=== PATIENT | male | born 1995 | race Caucasian/White ===

== ENCOUNTER 2024-02-19 07:32 | Emergency (ER) | payer MEDICARE ==
[~2024-02-19] VITALS: Ht 170.2 cm; Wt 68.0 kg
[2024-02-19 07:35] VITALS: O2SAT 100
[2024-02-19 08:07] VITALS: BP 100/70; PULSE 57; RESP 16; TEMP 98
== END 2024-02-19 08:33 | disposition home or self-care (01) ==
LOC: ER 07:58
DX: R55 Syncope and collapse (principal)
CPT/HCPCS: 93005; 99283; Z7610 ×3

== ENCOUNTER 2024-09-13 15:03 | Emergency (ER) | payer MEDICAID ==
[~2024-09-13] VITALS: Ht 170.2 cm; Wt 73.0 kg
[2024-09-13 15:05] VITALS: O2SAT 98
[2024-09-13] MEDS: LIDOCAINE HCL 1% 20ML VIAL INFIL ONE (17:45)
[2024-09-13] MEDS ORDERED: NAPR-681 MT (19:52)
[2024-09-13] MEDS ORDERED: SULF1TAB48 MT (19:52)
[2024-09-13 20:25] VITALS: BP 108/71; PULSE 66; RESP 16; TEMP 36.6; O2SAT 99
== END 2024-09-13 20:20 | disposition home or self-care (01) ==
LOC: ER 15:03
DX: L02.412 Cutaneous abscess of left axilla (principal); Z79.1 Long term (current) use of non-steroidal anti-inflammatories (NSAID)
CPT/HCPCS: 10060; 99283; J3490; 99282